=== PATIENT | female | born 2000 | race Two or more races ===

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

== ENCOUNTER 2025-07-01 07:07 | Inpatient (IN) ==
[2025-07-01 07:28] VITALS: BMI 35.9
[2025-07-01 07:36] LABS: BLOOD/HEMOGLOBIN,URINE 5+ (NEGATIVE); LEUKOCYTE ESTERASE ,URINE 3+ (NEGATIVE); NITRITES,URINE NEGATIVE (NEGATIVE)
[2025-07-01 07:40] LABS: AMNISURE ROM TEST THERE IS A RUPTURE (NO RUPTURE)
[2025-07-01 07:43] LABS: APPEARANCE,URINE HAZY (CLEAR); SQUAMOUS EPITHELIAL CELL,UR NUMEROUS /HPF (NEGATIVE)
[2025-07-01] MEDS ORDERED: ZOFRAN INJ 4 MG VIAL IVP PRN (08:02)
[2025-07-01] MEDS ORDERED: NUBAIN INJ 20 MG AMP IVP PRN (08:02)
[2025-07-01] MEDS ORDERED: REGLAN INJ 10 MG VIAL IVP PRN (08:02)
[2025-07-01 08:20] LABS: MEAN PLATELET VOLUME 10.1 fL (7.4-11.0); RED CELL DISTRIBUTION WIDTH 15.0 % (11.6-16.5)
[2025-07-01] MEDS: LR 1,000 ML IV 1,000 ML IV SCH (08:30)
[2025-07-01] MEDS: OXYTOCIN 20 UNIT/1,000 ML-NS 20 UNIT/1,000 ML PLAST..BAG IV PRN (08:30)
[2025-07-01 08:32] LABS: CREATININE 0.58 mg/dL (0.55-1.02); eGFR NON BLACK RACES > 60 (>60)
[2025-07-01] MEDS: LR 1,000 ML IV 1,000 ML IV ONE (08:53)
[2025-07-01] MEDS: PITOCIN ONE (08:53)
[2025-07-01] MEDS ORDERED: TYLENOL 325 MG TAB PO PRN (10:17)
[2025-07-01] MEDS: AMPICILLIN-SULBACTAM 3 GM VIAL 3 G in NS 100 ML IV 100 ML IV SCH (10:52)
[2025-07-01] MEDS ORDERED: PHARMACY CONSULT XX SCH (11:00)
[2025-07-01] MEDS: PITOCIN IVP ONE (17:22)
[2025-07-01] MEDS: BETADINE SOLN ONE (17:58)
[2025-07-01] MEDS: OXYTOCIN 20 UNIT/1,000 ML-NS 20 UNIT/1,000 ML PLAST..BAG IV SCH (18:06)
[2025-07-01] MEDS ORDERED: AMBIEN PO PRN (18:17)
[2025-07-01] MEDS ORDERED: MILK OF MAGNESIA PO PRN (18:17)
[2025-07-01] MEDS ORDERED: DERMOPLAST PAIN RELIEF SPRAY TOP PRN (18:17)
[2025-07-01] MEDS: MOTRIN TAB 800 MG PO PRN (22:39)
[2025-07-02] MEDS: PRENATAL PLUS PO SCH (09:34)
[2025-07-02 13:25] VITALS: O2SAT 96
[2025-07-02 16:24] VITALS: BP 120/66; PULSE 84; RESP 19; TEMP 98.2
[2025-07-02] MEDS: ADACEL or BOOSTRIX TDaP VACCINE IM ONE (16:24)
== END 2025-07-02 18:30 | disposition home or self-care (01) | DRG 807 ==
LOC: ER 07:07 → LD 07:54 → MED/SURG 18:21
PROVIDERS: ADMIT Obstetrics & Gynecology Obstetrics; ATTEND Obstetrics & Gynecology Obstetrics
DX: B33.8 Other specified viral diseases; Z3A.39 39 weeks gestation of pregnancy; O98.52 Other viral diseases complicating childbirth; Z37.0 Single live birth